=== PATIENT | male | born 1980 | race Caucasian/White ===

== ENCOUNTER 2018-04-25 08:17 | Observation (INO) ==
[2018-04-25 08:21] VITALS: RESP 18; O2SAT 99
--- NOTE | 2018-04-25 08:28 | ED ---
HPI General Chief Complaint: Chest Pain Stated Complaint: chest pain/left arm pit complaint Time Seen by Provider: 04/25/18 08:27 Source: patient Mode of arrival: ambulatory Limitations: no limitations History of Present Illness HPI narrative: Patient is a 38-year-old male with history of neuropathy and hypotension, presents to the emergency room with complaints of chest pain. Patient reports that the chest began once he arrived at the office today. Reports that he initially had pain to his left armpit after walking to the office. Patient reports that the pain lasted shortly and then as he was walking up the stairs, he began to have substernal chest pain. This time, patient reports that it felt like he had a "charley horse in my heart." Patient reports that he felt diaphoretic and then felt short of breath as the chest pain took his breath away. He did not feel any nausea or vomiting with this, reports that symptoms lasted for a few minutes and resolved on its own. Patient at this time denies any chest pain, reports just soreness to his chest. Patient denies history of hypertension or hyperlipidemia or diabetes, no history of coronary artery disease. Patient with no recent travels or trips, no history of PE or DVT, he is a non-smoker. Patient with no history of similar chest pains in the past. Complete Quality Measures for STEMI Alert Patients Related Data Home Medications Medication Instructions Recorded Confirmed gabapentin 300 mg PO DAILY 04/25/18 04/25/18 sertraline [Zoloft] 25 mg PO DAILY 04/25/18 04/25/18 Allergies Allergy/AdvReac Type Severity Reaction Status Date / Time acetaminophen [From Percocet] AdvReac Itching Verified 04/25/18 08:33 oxycodone [From Percocet] AdvReac Itching Verified 04/25/18 08:33 Review of Systems ROS: all other systems reviewed are negative PMFSH History History Provided By: Patient Medical History Medical History Chronic pain (Acute) Depression (Acute) Heart murmur (Acute) Neuropathy (Acute) Surgical History Surgical History H/O knee surgery (Acute) Social History Social History Substance History: No History of Abuse Smoking Status: Former smoker How Often Do You Have a Drink Containing Alcohol: 2 to 4 times a month Recent Travel in [place] within the Last 8 Weeks: No Recent Out of Country Travel within the Last 8 Weeks: No Exam Narrative Exam Narrative: GENERAL: Mild distress SKIN: Focused skin assessment warm/dry. HEAD: Atraumatic. Normocephalic. EYES: Pupils equal and round. No scleral icterus. No injection or drainage. ENT: No nasal bleeding or discharge. Mucous membranes pink and moist. NECK: Trachea midline. No JVD. CARDIOVASCULAR: Regular rate and rhythm. No murmur appreciated. RESPIRATORY: No accessory muscle use. Clear to auscultation. Breath sounds equal bilaterally. GASTROINTESTINAL: Abdomen soft, non-tender, nondistended. Hepatic and splenic margins not palpable. MUSCULOSKELETAL: No obvious deformities. No clubbing. No cyanosis. No edema. NEUROLOGICAL: Awake and alert. No obvious cranial nerve deficits. Motor grossly within normal limits. Normal speech. PSYCHIATRIC: Anxious mood and affect; insight and judgment normal. Course Initial Documented Vital Signs Pulse Rate 100 H 04/25/18 08:18 Respiratory Rate 18 04/25/18 08:18 Blood Pressure 142/63 H 04/25/18 08:18 Pulse Oximetry 99 04/25/18 08:18 Last Documented Vital Signs Pulse Rate 100 H 04/25/18 08:18 Respiratory Rate 18 04/25/18 08:18 Blood Pressure 142/63 H 04/25/18 08:18 Pulse Oximetry 99 04/25/18 08:18 Medical Decision Making MDM Narrative Medical decision making narrative: During the course of the patients emergency department visit, the patients history, examination, and differential diagnosis were reviewed with the patient. The patient was placed on a monitoring analyst with oximetry and frequent blood pressure monitoring. The patient had an IV access obtained and blood work sent for analysis. The patient was initially provided aspirin -patient is currently chest pain- free at this time. CBC: WNL BMP: wnl TROP: less than 0,02 Chest xray with no acute cardiopulmonary findings Patient is chest pain free at this time - plan to observe him in the chest jean-claude unit Differential Diagnosis Differential Diagnosis: ACS, arrhythmia, electrolyte abnormality, anxiety reaction Medical Records Medical records reviewed: Yes I reviewed the patient's medical records. Lab Data Lab results reviewed: Yes I reviewed the patient's lab results. Result diagrams: 04/25/18 08:35 04/25/18 08:35 Lab Results 04/25/18 04/25/18 04/25/18 Range/Units 08:35 08:35 08:35 WBC 4.8 (4.0-11.0) th/mm3 RBC 4.79 (4.50-5.90) mil/mm3 Hgb 15.0 (13.0-17.0) gm/dL Hct 41.9 (39.0-51.0) % MCV 87.5 (80.0-100.0) fL MCH 31.4 (27.0-34.0) pg MCHC 35.9 (32.0-36.0) % RDW 13.0 (11.6-17.2) % Plt Count 277 (150-450) th/mm3 MPV 9.2 (7.0-11.0) fL Neut % (Auto) 51.1 (16.0-70.0) % Lymph % (Auto) 37.9 (9.0-44.0) % Henderson % (Auto) 7.8 (0.0-8.0) % Eos % (Auto) 2.7 (0.0-4.0) % Baso % (Auto) 0.5 (0.0-2.0) % Neut # (Auto) 2.5 (1.8-7.7) th/mm3 Lymph # (Auto) 1.8 (1.0-4.8) th/mm3 Henderson # (Auto) 0.4 (0.0-0.9) th/mm3 Eos # (Auto) 0.1 (0.0-0.4) th/mm3 Baso # (Auto) 0.0 (0.0-0.2) th/mm3 WBC Differential . Differential Comment Auto diff final PT 10.1 (9.8-11.6) sec INR 1.0 Ratio APTT 26.6 (24.3-30.1) sec Sodium 138 (136-145) meq/L Potassium 4.2 (3.5-5.1) meq/L Chloride 105 (98-107) meq/L Carbon Dioxide 27.2 (21.0-32.0) meq/L Anion Gap 6 (5-15) meq/L BUN 17 (7-18) mg/dL Creatinine 1.03 (0.60-1.30) mg/dL Estimated GFR 80 L (>89) mL/min Random Glucose 94 (74-106) mg/dL Calcium 9.0 (8.5-10.1) mg/dL Total Bilirubin 0.4 (0.2-1.0) mg/dL AST 27 (15-37) U/L ALT 30 (12-78) U/L Alkaline Phosphatase 56 (45-117) U/L Total Creatine Kinase 229 (39-308) U/L CK-MB (CK-2) 2.8 (0.5-3.6) ng/mL Troponin I Less than 0.02 L (0.02-0.05) ng/mL B-Natriuretic Peptide (0-100) pg/mL Total Protein 7.9 (6.4-8.2) g/dL Albumin 4.3 (3.4-5.0) g/dL Lipase 114 (73-393) U/L 04/25/18 Range/Units 08:35 WBC (4.0-11.0) th/mm3 RBC (4.50-5.90) mil/mm3 Hgb (13.0-17.0) gm/dL Hct (39.0-51.0) % MCV (80.0-100.0) fL MCH (27.0-34.0) pg MCHC (32.0-36.0) % RDW (11.6-17.2) % Plt Count (150-450) th/mm3 MPV (7.0-11.0) fL Neut % (Auto) (16.0-70.0) % Lymph % (Auto) (9.0-44.0) % Henderson % (Auto) (0.0-8.0) % Eos % (Auto) (0.0-4.0) % Baso % (Auto) (0.0-2.0) % Neut # (Auto) (1.8-7.7) th/mm3 Lymph # (Auto) (1.0-4.8) th/mm3 Henderson # (Auto) (0.0-0.9) th/mm3 Eos # (Auto) (0.0-0.4) th/mm3 Baso # (Auto) (0.0-0.2) th/mm3 WBC Differential Differential Comment PT (9.8-11.6) sec INR Ratio APTT (24.3-30.1) sec Sodium (136-145) meq/L Potassium (3.5-5.1) meq/L Chloride (98-107) meq/L Carbon Dioxide (21.0-32.0) meq/L Anion Gap (5-15) meq/L BUN (7-18) mg/dL Creatinine (0.60-1.30) mg/dL Estimated GFR (>89) mL/min Random Glucose (74-106) mg/dL Calcium (8.5-10.1) mg/dL Total Bilirubin (0.2-1.0) mg/dL AST (15-37) U/L ALT (12-78) U/L Alkaline Phosphatase (45-117) U/L Total Creatine Kinase (39-308) U/L CK-MB (CK-2) (0.5-3.6) ng/mL Troponin I (0.02-0.05) ng/mL B-Natriuretic Peptide 6 (0-100) pg/mL Total Protein (6.4-8.2) g/dL Albumin (3.4-5.0) g/dL Lipase (73-393) U/L Imaging Data Attestation: I personally reviewed and interpreted this imaging study as follows : Radiologist's impression: Chest X-Ray 04/25/18 08:34 CONCLUSION: No acute cardiopulmonary findings identified. ECG Data EKG Prior to Arrival: No Attestation: I personally reviewed and interpreted this ECG as follows: Prior ECG tracings: not available for review Interpretation: EKG at 0830: NSR at 92bpm, qt/qtc: 336/386, 1st degree av block , there is no acute st or t wave changes Discharge Plan Discharge Disposition Patient Disposition: 30 Still Patient Discharge Condition Condition: Stable Physicians Team ED Provider: Alexus Peres Primary Care Provider: [facility] /Orders / Referrals /Forms Prescriptions: No Action gabapentin 300 mg Capsule 300 mg PO DAILY RF: 0 sertraline [Zoloft] 25 mg Tablet 25 mg PO DAILY RF: 0 Discharge Instructions Patient Printed Instructions: Chest Pain (ED) Status ED Status: Admitted Observation Patient
[2018-04-25 08:52] LABS: Baso % (Auto) 0.5 % (0.0-2.0); Eos # (Auto) 0.1 th/mm3 (0.0-0.4); Eos % (Auto) 2.7 % (0.0-4.0); Hematocrit 41.9 % (39.0-51.0); Lymph # (Auto) 1.8 th/mm3 (1.0-4.8); Lymph % (Auto) 37.9 % (9.0-44.0); Mean Corpuscular HGB Conc 35.9 % (32.0-36.0); Mean Corpuscular Hemoglobin 31.4 pg (27.0-34.0); Mean Corpuscular Volume 87.5 fL (80.0-100.0); Mean Platelet Volume 9.2 fL (7.0-11.0); Mono # (Auto) 0.4 th/mm3 (0.0-0.9); Mono % (Auto) 7.8 % (0.0-8.0); Neut # (Auto) 2.5 th/mm3 (1.8-7.7); Neut % (Auto) 51.1 % (16.0-70.0); Platelet Count 277 th/mm3 (150-450); Red Blood Count 4.79 mil/mm3 (4.50-5.90); White Blood Count 4.8 th/mm3 (4.0-11.0)
[2018-04-25 09:02] LABS: Activated Partial Thrombo Time 26.6 sec (24.3-30.1); Prothrombin Time 10.1 sec (9.8-11.6)
[2018-04-25 09:10] LABS: Alanine Aminotransferase 30 U/L (12-78)
--- NOTE | 2018-04-25 09:11 | XR ---
EXAM DATE: 04/25/2018 9:08 AM EDT AGE/SEX: 38 years / Male INDICATIONS: Chest pain. CLINICAL DATA: This is the patient's initial encounter. Patient reports that signs and symptoms have been present for 1 day and indicates a pain score of 5/10. MEDICAL/SURGICAL HISTORY: None. None. COMPARISON: No prior exams available for comparison. FINDINGS: A single AP view of the chest demonstrates the lungs to be symmetrically aerated without evidence of mass, infiltrate or effusion. The cardiomediastinal contours are unremarkable. Osseous structures a re intact. CONCLUSION: No acute cardiopulmonary findings identified. Electronically signed by: Fredy Fermin MD 04/25/2018 9:09 AM EDT
[2018-04-25 09:26] LABS: Albumin 4.3 g/dL (3.4-5.0); Alkaline Phosphatase 56 U/L (45-117); Anion Gap 6 meq/L (5-15); Aspartate Aminotransferase 27 U/L (15-37); Blood Urea Nitrogen 17 mg/dL (7-18); Carbon Dioxide 27.2 meq/L (21.0-32.0); Chloride 105 meq/L (98-107); Creatine Kinase 229 U/L (39-308); Glomerular Filtration Rate 80 mL/min (>89); Glucose,Random 94 mg/dL (74-106); Lipase 114 U/L (73-393); Sodium 138 meq/L (136-145); Total Protein 7.9 g/dL (6.4-8.2)
[2018-04-25 09:28] LABS: Potassium 4.2 meq/L (3.5-5.1)
[2018-04-25 09:41] LABS: Creatine Kinase MB 2.8 ng/mL (0.5-3.6)
--- NOTE | 2018-04-25 12:12 | P.HPCA ---
History of Present Illness Primary Care Physician: [facility] Chief Complaint: Chest pain History of Present Illness: This is a 38-year-old male the presents to ED via private vehicle with complaint of 2 episodes of chest discomfort. States she has history of some chronic pains that occurs suddenly and many areas of his body and it feels like a same type of discomfort however he has never had a in this location before. States that this morning around 6:00 while he was in his office he developed an axillary sharp pain the last a couple seconds. States is very intense. Then later in the morning after he climbed several flights of stairs for work he developed another severe sharp pain in the center of his chest also lasting couple seconds. On that episode he was short of breath and diaphoretic briefly. No nausea. He goes to the [place] for his medical care and states he had a cardiac workup. [facility] and found that he did not have a stress test. Patient states he had a 2D echo at that time and states he was told it was fine. Denies recent illnesses. Denies fevers or chills. States he also suffers from neuropathy but does not like to take gabapentin. He also suffers from PTSD but does not like to take medication for that either. Was a smoker for about 2-3 years but quit smoking 15 years ago. States his father has heart issues but really does not know what they are. Cannot recall him ever having heart bypass or stents but knows that he takes heart medications. - Diagnosis (1) Chest pain Review of Systems General: Patient denies fevers, chills, and recent travel. HEENT: Patient denies headache, sore throat, difficulty swallowing. Cardiovascular: Has the chest discomfort as mentioned above. Denies sensation of heart beating rapidly or irregularly. No syncope. He was diaphoretic. Respiratory: He was short of breath. Denies inspirational chest discomfort. Denies coughing wheezing or hemoptysis. GI: Patient denies nausea, vomiting, diarrhea, abdominal pain, bloody stools. Musculoskeletal: Patient denies joint pain or edema. Denies calf pain or edema. Neurovascular: Patient denies numbness, tingling, weakness in extremities. Denies headache. Endocrine: Denies polyuria and polydipsia. Hematologic: Denies easy bruising. Skin: Denies rash or itching. PMFSH - History History Provided By: Patient - Medical History Medical History: Medical History (Last Reviewed 04/25/18 @ 08:38 by Alexus Peres) Chronic pain Depression Heart murmur Neuropathy PTSD (post-traumatic stress disorder) TBI (traumatic brain injury) - Surgical History Surgical History: Surgical History (Last Reviewed 04/25/18 @ 08:38 by Alexus Peres) H/O knee surgery - Tobacco History Smoking Status: Former smoker - Alcohol History How Often Do You Have a Drink Containing Alcohol: 2 to 4 times a month - Substance Use History Substance History: No History of Abuse - Travel History Recent Travel in the [place] Within the Last 8 Weeks: No Recent Travel Out of the Country Within the Last 8 Weeks: No - Immunization History Tetanus Immunization: Unsure Hx Influenza Vaccine This Season: Yes Medications and Allergies Active Medications: Active Medications Clonidine HCl (Catapres) 0.1 mg PO Q6H PRN PRN Reason: SBP >165 OR DBP > 110 Sodium Chloride (Ns Flush) 2 ml IV.FLUSH UNSCH PRN PRN Reason: FLUSH AFTER USING IV ACCESS Allergies Allergy/AdvReac Type Severity Reaction Status Date / Time acetaminophen [From Percocet] AdvReac Itching Verified 04/25/18 08:33 oxycodone [From Percocet] AdvReac Itching Verified 04/25/18 08:33 Home Medications Medication Instructions Recorded Confirmed Type gabapentin 300 mg PO DAILY 04/25/18 04/25/18 History sertraline [Zoloft] 25 mg PO DAILY 04/25/18 04/25/18 History Exam Vital signs: Vital Signs 04/25/18 08:18 Pulse Rate 100 H Respiratory Rate 18 Blood Pressure 142/63 H Pulse Oximetry 99 Intake & Output 04/24/18 04/25/18 04/25/18 18:59 06:59 18:59 Weight 121.563 kg Narrative: GENERAL: This is a well-nourished, well-developed patient, in no apparent distress. Patient speaks in clear complete sentences. Patient is pleasant. HEENT: Head is atraumatic and normocephalic. Neck is supple without lymphadenopathy and trachea is midline. No JVD or carotid bruits. CARDIOVASCULAR: Regular rate and rhythm without murmurs, gallops, or rubs. RESPIRATORY: Clear to auscultation. Breath sounds equal bilaterally. No wheezes , rales, or rhonchi. Chest wall is tender. No use of accessory muscles. GASTROINTESTINAL: Abdomen is nontender, nondistended. Abdomen soft. No obvious pulsatile mass or bruit. No CVA tenderness. Strong femoral pulses bilaterally. Normal bowel sounds in all quadrants. MUSCULOSKELETAL: Patient is moving upper and lower extremities freely. No calf tenderness or edema, no Homans sign. Strong pulses in upper and lower extremities. NEUROLOGICAL: Patient is alert and oriented. Cranial nerves 2-12 are grossly intact. No focal deficits and speech is clear. SKIN: No rash and turgor is normal. Results 04/25/18 08:35 04/25/18 08:35 Cardiac Enzymes 04/25/18 04/25/18 Range/Units 08:35 08:35 AST 27 (15-37) U/L CK-MB (CK-2) 2.8 (0.5-3.6) ng/mL Troponin I Less than 0.02 L (0.02-0.05) ng/mL B-Natriuretic Peptide 6 (0-100) pg/mL Coagulation 04/25/18 04/25/18 Range/Units 08:35 08:35 PT 10.1 (9.8-11.6) sec APTT 26.6 (24.3-30.1) sec B-Natriuretic Peptide 6 (0-100) pg/mL CBC 04/25/18 Range/Units 08:35 WBC 4.8 (4.0-11.0) th/mm3 RBC 4.79 (4.50-5.90) mil/mm3 Hgb 15.0 (13.0-17.0) gm/dL Hct 41.9 (39.0-51.0) % Plt Count 277 (150-450) th/mm3 Neut # (Auto) 2.5 (1.8-7.7) th/mm3 Lymph # (Auto) 1.8 (1.0-4.8) th/mm3 Evans # (Auto) 0.4 (0.0-0.9) th/mm3 Eos # (Auto) 0.1 (0.0-0.4) th/mm3 Baso # (Auto) 0.0 (0.0-0.2) th/mm3 Comprehensive Metabolic Panel 04/25/18 Range/Units 08:35 Sodium 138 (136-145) meq/L Potassium 4.2 (3.5-5.1) meq/L Chloride 105 (98-107) meq/L Carbon Dioxide 27.2 (21.0-32.0) meq/L BUN 17 (7-18) mg/dL Creatinine 1.03 (0.60-1.30) mg/dL Calcium 9.0 (8.5-10.1) mg/dL AST 27 (15-37) U/L ALT 30 (12-78) U/L Alkaline Phosphatase 56 (45-117) U/L Total Protein 7.9 (6.4-8.2) g/dL Albumin 4.3 (3.4-5.0) g/dL Intake and Output 04/24/18 04/25/18 04/25/18 22:59 06:59 14:59 Other: Weight 121.563 kg Patient Weight 04/26/18 06:59 Weight 121.563 kg EKG interpretations - EKG EKG shows: sinus rhythm (Initial EKG is sinus rhythm without significant ST segment depressions or elevations.) Caprini VTE Risk Assessment Caprini VTE Risk Assessment: No/Low Risk (score <= 1) Caprini Risk Assessment Model: Point Value = 1 Point Value = 2 Point Value = 3 Point Value = 5 Age 41-60 Minor surgery BMI > 25 kg/m2 Swollen legs Varicose veins or History of unexplained or recurrent spontaneous Oral contraceptives or hormone replacement Sepsis (< 1 month) Serious lung disease, including pneumonia (< 1 month) Abnormal pulmonary function Acute myocardial infarction Congestive heart failure (< 1 month) History of inflammatory bowel disease Medical patient at bed rest Age 61-74 Arthroscopic surgery Major open surgery (> 45 min) Laparoscopic surgery (> 45 min) Malignancy Confined to bed (> 72 hours) Immobilizing plaster cast Central venous access Age >= 75 History of VTE Family history of VTE Factor V Leiden Prothrombin [id number] Lupus anticoagulant Anticardiolipin antibodies Elevated serum homocysteine Heparin-induced thrombocytopenia Other congenital or acquired thrombophilia Stroke (< 1 month) Elective arthroplasty Hip, pelvis, or leg fracture Acute spinal cord injury (< 1 month) Prophylaxis Regimen: Total Risk Factor Score Risk Level Prophylaxis Regimen 0-1 Low Early ambulation 2 Moderate Order ONE of the following: *Sequential Compression Device (SCD) *Heparin 5000 units SQ BID 3-4 Higher Order ONE of the following medications: *Heparin 5000 units SQ TID *Enoxaparin/Lovenox 40 mg SQ daily (WT < 150 kg, CrCl > 30 mL/min) *Enoxaparin/Lovenox 30 mg SQ daily (WT < 150 kg, CrCl > 10-29 mL/min) *Enoxaparin/Lovenox 30 mg SQ BID (WT < 150 kg, CrCl > 30 mL/min) AND/OR *Sequential Compression Device (SCD) 5 or more Highest Order ONE of the following medications: *Heparin 5000 units SQ TID (Preferred with Epidurals) *Enoxaparin/Lovenox 40 mg SQ daily (WT < 150 kg, CrCl > 30 mL/min) *Enoxaparin/Lovenox 30 mg SQ daily (WT < 150 kg, CrCl > 10-29 mL/min) *Enoxaparin/Lovenox 30 mg SQ BID (WT < 150 kg, CrCl > 30 mL/min) AND *Sequential Compression Device (SCD) Assessment and Plan - Assessment (1) Chest pain Code(s): R07.9 - Chest pain, unspecified Status: Acute - Plan * Chest pain: Patient will continue to have serial cardiac enzymes and EKGs for ruling out purposes. He will be seen by Dr. Garzon of cardiology in the chest pain center. He will undergo a Magan protocol ETT. He will be discharged home if the stress test is nonischemic with instructions to follow- up with PCP. Return to ED for interval issues. Patient is stable at this time. He is agreeable to this plan.
[2018-04-25 12:44] LABS: Creatine Kinase 189 U/L (39-308)
[2018-04-25 12:57] LABS: Creatine Kinase MB 2.8 ng/mL (0.5-3.6)
[2018-04-25 13:34] VITALS: BP 135/62; PULSE 85
--- NOTE | 2018-04-25 15:43 | ECG ---
Date Performed: 04/25/2018 Time Performed: 11:31:11 PTAGE: 38 years EKG: Sinus rhythm WITH FIRST DEGREE AV BLOCK LOW QRS VOLTAGE IN PRECORDIAL LEADS ABNORMAL ECG NO PREVIOUS TRACING DOCTOR: Gallo Hedrick Interpretating Date/Time 04/25/2018 15:42:04
[2018-04-25 15:44] LABS: Creatine Kinase 204 U/L (39-308)
[2018-04-25 15:57] LABS: Creatine Kinase MB 2.1 ng/mL (0.5-3.6)
--- NOTE | 2018-04-25 16:17 | ECG ---
Date Performed: 04/25/2018 Time Performed: 08:30:59 PTAGE: 38 years EKG: Sinus rhythm WITH FIRST DEGREE AV BLOCK POSSIBLE LEFT ATRIAL ENLARGEMENT ABNORMAL ECG NO PREVIOUS TRACING DOCTOR: Ale Garzon Interpretating Date/Time 04/25/2018 16:15:03
--- NOTE | 2018-04-25 21:00 | ECG ---
Date Performed: 04/25/2018 Time Performed: 14:31:39 PTAGE: 38 years EKG: Sinus rhythm WITH FIRST DEGREE AV BLOCK POSSIBLE LEFT ATRIAL ENLARGEMENT ABNORMAL ECG PREVIOUS TRACING : 04/25/2018 11.31 DOCTOR: Gallo Hedrick Interpretating Date/Time 04/25/2018 20:58:48
--- NOTE | 2018-04-26 11:36 | TR ---
Date Performed: 04/25/2018 Time Performed: 16:13:44 DOCTOR: Arsh Rodrigez DRUG LIST: CLINICAL HISTORY: REASON FOR TEST: Chest pain REASON FOR ENDING: OBSERVATION: CONCLUSION: BRCUE PROTOCOL. NO CP. TEST STOPPED AFTER EXCEEDING GOAL HR SECONDARY TO SOB AND LEG FATIGUE.Maximum FB=359 % Max HR Achieved=98.0% Maximum AJ=888/86 Total Exercise Time=8:59 COMMENTS: Patient exercised using the Magan protocol. No electrocardiographic changes were seen to suggest ischemia. Hemodynamic response to exercise was normal. No significant arrhythmia was prese nt.
== END 2018-04-25 18:11 | disposition home or self-care (01) ==
LOC: NEDA 08:17 → NEPC 08:17 → NEPHCDU 08:17
PROVIDERS: ADMIT Internal Medicine Interventional Cardiology; ATTEND Internal Medicine Interventional Cardiology
DX: G62.9 Polyneuropathy, unspecified; F32.9 Major depressive disorder, single episode, unspecified; R61 Generalized hyperhidrosis; I44.0 Atrioventricular block, first degree; Z87.891 Personal history of nicotine dependence; G89.29 Other chronic pain; R06.02 Shortness of breath; R07.89 Other chest pain; F43.10 Post-traumatic stress disorder, unspecified